=== PATIENT | male | born 1995 | race Two or more races ===

== ENCOUNTER 2017-08-22 16:57 | Emergency (ER) | payer MEDICAID, OTHER ==
[~2017-08-22] VITALS: Ht 167.6 cm; Wt 90.7 kg
[2017-08-22 17:21] VITALS: BP 135/78
[2017-08-22 18:21] LABS: Basophils # (auto) 0.1 uL; Eosinophils # (auto) 0.2 uL; Eosinophils % (auto) 1.7 % (0.0-7.0); Monocytes # (auto) 0.6 uL; White Blood Cell 11.3 10^3/uL (4.4-10.8)
[2017-08-22 18:23] LABS: Basophils % (auto) 0.9 % (0.0-2.0); Hematocrit 45.6 % (41.0-53.0); Hemoglobin 15.1 g/dL (13.5-17.5); Lymphocytes % (auto) 26.9 % (10.0-50.0); Mean Corpuscular Hemoglobin 28.2 pg (28.0-32.0); Mean Corpuscular Hgb Conc. 33.2 g/dL (32.0-36.0); Mean Corpuscular Volume 84.9 fL (80.0-100.0); Monocytes % (auto) 5.6 % (0.0-12.0); Neutrophils # (auto) 7.3 uL; Neutrophils % (auto) 64.9 % (37.0-80.0); Nucleated Red Blood Cells % 0.1 %; Platelet Count (auto) 463 10^3/uL (140-450); Red Blood Cells 5.37 10^6/uL (4.5-5.90); Red Cell Distribution Width 14.2 % (11.8-14.3)
[2017-08-22 18:41] LABS: Alanine Aminotransferase 63 U/L (16-61); Albumin 4.4 g/dL (3.4-5.0); Alkaline Phosphatase 96 U/L (45-117); Anion Gap 12 (5-15); Aspartate Aminotransferase 25 U/L (15-37); BUN/Creatinine Ratio 21.5; Bilirubin, Total 0.2 mg/dL (0.2-1.0); Blood Urea Nitrogen 14 mg/dL (7-18); Calcium 10.2 mg/dL (8.5-10.1); Carbon Dioxide 22 mmol/L (21-32); Chloride 106 mmol/L (98-107); GFR African American 198 mL/min; GFR Non-African American 163 mL/min; Glucose 99 mg/dL (74-106); Magnesium 2.4 mg/dL (1.6-2.6); Potassium 3.9 mmol/L (3.5-5.1); Sodium 140 mmol/L (136-145)
== END 2017-08-22 19:45 | disposition home or self-care (01) ==
LOC: ER 16:57
DX: B34.9 Viral infection, unspecified (principal); R51 Headache
CPT/HCPCS: 36415; 80053; 83735; 84484; 85025; 93005; 94761

== ENCOUNTER 2017-11-16 19:09 | Emergency (ER) | payer MEDICAID ==
[~2017-11-16] VITALS: Ht 167.6 cm; Wt 117.5 kg
[2017-11-16 19:20] VITALS: BP 112/88
[2017-11-16] MEDS ORDERED: ONDANSETRON ODT 4 MG TAB PO ONE (22:45)
== END 2017-11-16 22:53 | disposition home or self-care (01) ==
LOC: ER 19:09
DX: J06.9 Acute upper respiratory infection, unspecified (principal); H61.20 Impacted cerumen, unspecified ear; E78.5 Hyperlipidemia, unspecified
CPT/HCPCS: 99283; Q0162